=== PATIENT | male | born 1970 | race Caucasian/White ===

== ENCOUNTER 2024-11-11 00:56 | Emergency (ER) | payer OTHER, SELFPAY ==
--- OUTSIDE RECORDS SUMMARY | 2024-11-11 00:58 | XMS_ITS | Patient Health Summary ---
Author Organization [facility] Address [address] [place] [address] Care Team Providers Care Tavern Car Attendant Name Role Phone Kyle Manuel MD Primary Care Provider [phone] Note from [facility],non-owned Affiliates and Associated Physician Practices is amultiple site organization consisting of ambulatory clinics and hospital sitesin [place], [place], [place] and [place]. This disclosure is being madepursuant to the Care Everywhere program and may not contain all information available regarding this patient. Last updated 18.[facility] Allergies No known active allergies Immunizations * INFLUENZA VACCINE, QUADR. (FLUZONE; FLULAVAL; FLUARIX; AFLURIA QUADRIVALENT; 6MO+), 0.5 ML (IIV4)(Given 06/27/2017) Social History Tobacco Use Types Packs/Day Years Used Date Smoking Tobacco: Never Assessed Sex and Gender Information Value Date Recorded Sex Assigned at Not on file Gender Identity Not on file Sexual Orientation Not on file Care Teams Tavern Car Attendant Relationship Specialty Start Date End Date Kyle Manuel MD [address] [place] [id number] PCP - General Family Medicine 06/27/17
--- OUTSIDE RECORDS SUMMARY | 2024-11-11 00:58 | XMS_ITS | Referral Summary ---
Author Organization [facility] Address [address] [place] [address] Care Team Providers Care Grocery Supervisor Name Role Phone Kyle Manuel MD Primary Care Provider [phone] Source Comments [facility],non-owned Affiliates and Associated Physician Practices is amultiple site organization consisting of ambulatory clinics and hospital sitesin [place], [place], [place] and [place]. This disclosure is being madepursuant to the Care Everywhere program and may not contain all information available regarding this patient. Last updated 18.[facility] Allergies No known active allergies Immunizations Name Administration Dates Next Due INFLUENZA VACCINE, QUADR. (F LUZONE; FLULAVAL; FLUARIX; AFLURIA QUADRIVALENT; 6MO+), 0.5 ML (IIV4) 06/27/2017 Social History Tobacco Use Types Packs/Day Years Used Date Smoking Tobacco: Never Assessed Sex and Gender Information Value Date Recorded Sex Assigned at Not on file Gender Identity Not on file Sexual Orientation Not on file Plan of Treatment Not on file Care Teams Grocery Supervisor Relationship Specialty Start Date End Date Kyle Manuel MD [address] [place] [address] PCP - General Family Medicine 06/27/17
--- OUTSIDE RECORDS SUMMARY | 2024-11-11 00:59 | XMS_ITS | Clinical Summary ---
Author Organization [facility] Address [address] [place] [address] Care Team Providers Care Developer Prover Mechanical Name Role Phone Kyle Manuel MD Primary Care Provider [phone] Source Comments [facility],non-owned Affiliates and Associated Physician Practices is amultiple site organization consisting of ambulatory clinics and hospital sitesin [place], [place], [place] and [place]. This disclosure is being madepursuant to the Care Everywhere program and may not contain all information available regarding this patient. Last updated 18.[facility] Allergies No known active allergies Immunizations Name [...] Orientation Not on file Plan of Treatment Health Maintenance Due Date Last Done Comments COLOGUARD (AGES 45-75) - COL ON CA SCREENING 1971 COLON MONITORING 1971 COLONOSCOPY - COLON CA SCREENING 1971 CT COLONOGRAPHY - COLON CA SCREENING 1971 Colorectal Cancer Screening 1971 FIT - COLON CA SCREENING 1971 FLEX SIG - COLON CA SCREENING 1971 LIPID TESTING 1971 HIV SCREENING 12/02/1986 HEPATITIS C SCREENING 11/28/1989 DTAP/TDAP/TD VACCINES (1 - Tdap) 12/02/1990 HEPATITIS B VACCINE (1 of 3 - 19+ 3-dose series) 12/02/1990 PNEUMOCOCCAL VACCINE 50+ (1 of 1 - PCV) 12/02/2021 ZOSTER VACCINE (1 of 2) 12/02/2021 COVID-19 VACCINE (1 - 2023-2 5 season) 2024 INFLUENZA VACCINE (#1) 2024 06/27/2017 DEPRESSION SCREENING 08/28/2024 HIB VACCINE Aged Out No longer eligi ble based on patient's age to complete this topic HPV VACCINE Aged Out No longer eligi ble based on patient's age to complete this topic MENINGOCOCCAL (Group B) VACC INE SHARED DECISION-MAKING Aged Out No longer eligibl e based on patient's age to complete this topic MENINGOCOCCAL GROUPS A/C/Y/W VACCINE Aged Out No longer eligible b ased on patient's age to complete this topic PNEUMOCOCCAL VACCINE Aged Out No long er eligible based on patient's age to complete this topic Care Teams Developer Prover Mechanical Relationship Specialty Start Date End Date Kyle Manuel MD [address] [place] [address] PCP - General Family Medicine 06/27/17
[2024-11-11 01:08] VITALS: BP 154/81; PULSE 108; RESP 20; TEMP 36.4; O2SAT 97
--- OUTSIDE RECORDS SUMMARY | 2024-11-11 02:07 | XMS_ITS | Patient Health Summary ---
Author Organization [facility] Address [address] [place] [address] Care Team Providers Care Shredded Filler Machine Wrapper Layer Name Role Phone Kyle Manuel MD Primary Care Provider [phone] Note from [facility],non-owned Affiliates and Associated Physician Practices is amultiple site organization consisting of ambulatory clinics and hospital sitesin [place], [place], [place] and [place]. This disclosure is being madepursuant to the Care Everywhere program and may not contain all information available regarding this patient. Last updated 18.[facility] Allergies No known active allergies Immunizations * INFLUENZA VACCINE, QUADR. (FLUZONE; FLULAVAL; FLUARIX; AFLURIA QUADRIVALENT; 6MO+), 0.5 ML (IIV4)(Given 06/27/2017) Social History Tobacco Use Types Packs/Day Years Used Date Smoking Tobacco: Never Assessed Sex and Gender Information Value Date Recorded Sex Assigned at Not on file Gender Identity Not on file Sexual Orientation Not on file Care Teams Shredded Filler Machine Wrapper Layer Relationship Specialty Start Date End Date Kyle Manuel MD [address] [place] [id number] PCP - General Family Medicine 06/27/17
--- OUTSIDE RECORDS SUMMARY | 2024-11-11 02:07 | XMS_ITS | Referral Summary ---
Author Organization [facility] Address [address] [place] [address] Care Team Providers Care Model Maker Fiberglass Name Role Phone Kyle Manuel MD Primary Care Provider [phone] Source Comments [facility],non-owned Affiliates and Associated Physician Practices is amultiple site organization consisting of ambulatory clinics and hospital sitesin [place], [place], [place] and [place]. This disclosure is being madepursuant to the Care Everywhere program and may not contain all information available regarding this patient. Last updated 18.[facility] Allergies No known active allergies Immunizations Name [...] of Treatment Not on file Care Teams Model Maker Fiberglass Relationship Specialty Start Date End Date Kyle Manuel MD [address] [place] [address] PCP - General Family Medicine 06/27/17
--- OUTSIDE RECORDS SUMMARY | 2024-11-11 02:07 | XMS_ITS | Clinical Summary ---
Author Organization [facility] Address [address] [place] [address] Care Team Providers Care Iuss Acoustic Analyst Name Role Phone Kyle Manuel MD Primary Care Provider [phone] Source Comments [facility],non-owned Affiliates and Associated Physician Practices is amultiple site organization consisting of ambulatory clinics and hospital sitesin [place], [place], [place] and [place]. This disclosure is being madepursuant to the Care Everywhere program and may not contain all information available regarding this patient. Last updated 18.[facility] Allergies No known active allergies Immunizations Name [...] age to complete this topic Care Teams Iuss Acoustic Analyst Relationship Specialty Start Date End Date Kyle Manuel MD [address] [place] [address] PCP - General Family Medicine 06/27/17
[2024-11-11 02:15] LABS: Influenza A QL RT-PCR Positive (Negative); Influenza B QL RT-PCR Negative (Negative); RSV RNA, RT-PCR Negative (Negative); SARS-CoV-2 RNA PCR Negative (Negative)
--- NOTE | 2024-11-11 02:21 | ED_ITS ---
HPI - URI/Sore Throat General Chief Complaint: Upper Respiratory Infection Stated Complaint: sick and cant seem to shake it Time Seen by Provider: 11/11/24 02:02 Source: patient and family ( who also presents patient) Mode of arrival: ambulatory Limitations: no limitations History of Present Illness HPI Narrative: Patient presents with report of a productive cough, myalgias, chills of 1 week's duration. He denies any sore throat. who also presents with him as a patient has had similar symptoms. He has been trialing Zicam and NyQuil. He feels like he has brain fog. He reports a possible fever although not measured. Underlying respiratory conditions/diagnoses include sleep apnea (but not on CPAP). Denies smoking currently (former) but does report chewing tobacco. Related Data Allergies Allergy/AdvReac Type Severity Reaction Status Date / Time No Known Allergies Allergy Verified 11/11/24 01:10 [facility] Past Medical History Medical History Inclusion cyst Diabetes mellitus with microalbuminuria Diabetes mellitus with hyperglycemia ROHAN (obstructive sleep apnea) not on CPAP Essential hypertension Hyperlipidemia Surgical History Surgical History S/P tendon repair Family History Family History Father , Onset Age: 33 Motorcycle crash Mother No problems noted. Sibling No problems noted. Social History Social History Smoking status: Former smoker Smokeless tobacco user: chewing tobacco Second hand tobacco smoke exposure: Yes Alcohol intake: never Substance use: never Substance use type: does not use Do You Feel Safe in your Home?: Yes Lack of Transportation: No Lack of Food: Never True Current Housing: I Have Housing Concerned About Future Housing: No Difficulty Paying Gas/Electric Bills: No Difficulty Paying for Meds: No Currently Unemployed: No Education: High School Diploma/GED Difficulty w/ Childcare or Family Care: No Living arrangements: with family Additional living arrangements comments: Occupation/Education: occupation 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 HEAD: Normocephalic, atraumatic. EYES: Non injected, non icteric ENT: Nares clear, no rhinorrhea or epistaxis. NECK: Supple. CHEST: Speaking in full sentences. No respiratory distress. HEART: Tachycardic rate and rhythm. . ABDOMEN: Soft, nondistended. EXTREMITIES: Normal range of motion. SKIN: Warm, dry, no rash. NEURO: No focal deficits. Alert and oriented x3. PSYCH: Normal mood and affect. Course Vital Signs Vital signs: Vital Signs Temperature 97.6 F 11/11/24 01:08 Pulse Rate 108 H 11/11/24 01:08 Respiratory Rate 20 11/11/24 01:08 Blood Pressure 154/81 H 11/11/24 01:08 Pulse Oximetry 97 11/11/24 01:08 Oxygen Delivery Room Air 11/11/24 01:08 Temperature 97.6 F 11/11/24 01:08 Pulse Rate 108 H 11/11/24 01:08 Respiratory Rate 20 11/11/24 01:08 Blood Pressure 154/81 H 11/11/24 01:08 Pulse Oximetry 97 11/11/24 02:32 Oxygen Delivery Room Air 11/11/24 02:32 MDM - URI/Sore Throat MDM Narrative Medical decision making narrative: Patient presents with productive cough, myalgias, chills and brain fog with possible/subjective fevers of 1 week's duration. has had similar symptoms and also presents as a patient. In the emergency department he is afebrile with vital signs that show mild tachycardia and hypertension. He tests positive for influenza A. Patient given combination of medications for symptomatic relief while in the emergency department. Discussed but through shared decision-making will defer providing prescription for Tamiflu specially given duration of symptoms greater than 72 hours. Patient discharged home in stable condition advised supportive care and conservative treatment with rest, maintain hydration, and combination of medications for symptom relief. Verifies understanding and is in agreement. Stable for discharge. Lab Data Labs: Lab Results 11/11/24 Range/Units 01:30 Influenza A (RT-PCR) Positive A (Negative) Influenza B (RT-PCR) Negative (Negative) RSV (RT-PCR) Negative (Negative) SARS-CoV-2 RNA (RT-PCR) Negative (Negative) Discharge Plan Discharge Clinical Impression: Influenza A Patient Disposition: Home, Self-Care Condition: Stable Instructions: Antibiotic Form, Influenza (DC) Additional Instructions: As we discussed, the main stays of treatment are rest and supportive care, maintaining hydration. You can use the prescribed medications for symptom relief. You can continue to use the other coyz-ooh-znwuzea medications you are using as well. Acetaminophen/Tylenol (maximum 4000 mg per day) is safe to take with NSAIDs (ibuprofen/Motrin) for pain relief. Follow-up with primary care physician. Return to the emergency department with any new or worsening symptoms. Patient Language: Bengali Prescriptions: New acetaminophen 500 mg capsule 1,000 mg PO Q6H PRN (Reason: pain) Qty: 20 0RF benzonatate 100 mg capsule 100 mg PO BID PRN (Reason: cough) Qty: 20 0RF ibuprofen 600 mg tablet 600 mg PO TID PRN (Reason: pain) Qty: 20 0RF No Action Synjardy XR 12.5-1,000 mg tablet, IR - ER, biphasic 24hr 2 tablet PO DAILY Qty: 180 1RF Trulicity 3 mg/0.5 mL pen injector 3 mg subcut WEEKLY Qty: 6 1RF (DME) FreeStyle Reinaldo 2 Sensor Kit See Rx Instructions .Route Qty: 6 3RF Rx Instructions: QID benazepril 20 mg tablet 20 mg PO DAILY Qty: 90 3RF atorvastatin [Lipitor] 20 mg tablet 20 mg PO DAILY Qty: 90 3RF Follow-up/Referrals: Kyle Manuel MD [Primary Care Provider] - Stand Alone Forms: Work/School Release IP Time of Disposition: 02:38
[2024-11-11 02:32] VITALS: O2SAT 97
[2024-11-11] MEDS: guaiFENesin/DEXTROMETHORPHAN 10 ML UDC PO (03:01)
[2024-11-11] MEDS: KETOROLAC 30 MG/ML VIAL (*BKC) 15 MG IM (03:02)
[2024-11-11] MEDS: ACETAMINOPHEN 500 MG TABLET 1000 MG PO (03:02)
[2024-11-11] MEDS: BENZONATATE 100 MG CAPSULE PO (03:02)
== END 2024-11-11 03:16 | disposition home or self-care (01) ==
PROVIDERS: Emergency Provider Student in an Organized Health Care Education/Training Program; PCP Family Medicine
DX: J10.1 Influenza due to other identified influenza virus with other respiratory manifestations (principal); Z20.822 Contact with and (suspected) exposure to COVID-19; E11.9 Type 2 diabetes mellitus without complications; G47.33 Obstructive sleep apnea (adult) (pediatric); I10 Essential (primary) hypertension; E78.5 Hyperlipidemia, unspecified; Z87.891 Personal history of nicotine dependence
CPT/HCPCS: 87637; 96372; 99283; A9270; J1885

== ENCOUNTER 2024-11-15 03:21 | Inpatient (IN) | payer OTHER, SELFPAY ==
[2024-11-15] VITALS (17 sets, daily range): BP systolic 114–161; BP diastolic 57–122; PULSE 72–119; RESP 17–38; TEMP 36.6–37.1; O2SAT 93–100; BMI 38.9
--- NOTE | ~2024-11-15 | CT_ITS ---
Clinical Indication: Chest pain, shortness of breath CT Scan of the Chest with Contrast: Technique: Contiguous sections were acquired throughout the chest after intravenous administration of 200 cc of Omnipaque 350. Dose reduction technique was used on this scan by utilizing automated expos ure control and iterative reconstruction technique. The dose-length product (DLP) was 2286.71 mGy-cm. Findings: There is no evidence of any significant mediastinal, hilar or axillary lymphadenopathy. No definite l arge central pulmonary embolus. Evaluation for pulmonary emboli suboptimal due to timing of the contr ast bolus.. There is no evidence of aortic dissection or aneurysm. No pericardial effusion. And minimal left pleural effusion present. No right pleural effusion.. There is extensive left lower lobe consolidation, compatible with extensive pneumonia. There is mild involvement of the lingula. There is segmental atelectasis in the posterior left upper lobe. Right felix ng clear. Images through the upper abdomen reveal 3 mm nonobstructing left renal stone. Impression: Extremely limited evaluation for pulmonary embolus due to timing of the contrast bolus. No definite l arge central pulmonary embolus. Extensive left lower lobe pneumonia with partial involvement of the lingula. Segmental atelectasis in the posterior left upper lobe. Minimal left pleural effusion. Reviewed, dictated and finalized at location M. Impression: Extremely limited evaluation for pulmonary embolus due to timing of the contras t bolus. No definite large central pulmonary embolus. Extensive left lower lobe pneumonia with partial involvement of the lingula. Segmental atelectasis in the posterior left upper lobe. Minimal left pleural effusion.
--- OUTSIDE RECORDS SUMMARY | 2024-11-15 03:23 | XMS_ITS | Clinical Summary ---
Author Organization [facility] Address [address] [place] [address] Care Team Providers Care Dragsaw Operator Name Role Phone Kyle Manuel MD Primary Care Provider [phone] Source Comments [facility],non-owned Affiliates and Associated Physician Practices is amultiple site organization consisting of ambulatory clinics and hospital sitesin [place], [place], [place] and [place]. This disclosure is being madepursuant to the Care Everywhere program and may not contain all information available regarding this patient. Last updated 18.[facility] Allergies No known active allergies Immunizations Name [...] age to complete this topic Care Teams Dragsaw Operator Relationship Specialty Start Date End Date Kyle Manuel MD [address] [place] [address] PCP - General Family Medicine 06/27/17
[2024-11-15] MEDS: MORPHINE SULFATE (*CRX) 4 MG/ML INJ IV PUSH (03:37)
[2024-11-15] MEDS: SODIUM CHLORIDE 0.9% IV 1,000 ML 999 ML IV CONT (03:38)
[2024-11-15] MEDS: ASPIRIN 81 MG CHEWABLE TABLET 324 MG PO (03:39)
[2024-11-15 03:55] LABS: Hematocrit 37.7 % (42.0-52.0); Hemoglobin 12.3 g/dL (14.0-18.0); Mean Corpuscular HGB Conc 32.6 g/dl (32-36); Mean Corpuscular Hemoglobin 28.5 pg (26-34); Mean Corpuscular Volume 87.3 fl (80-100); Mean Platelet Volume 9.1 fl (7.4-10.4); Platelet Count Result 279 k/mm3 (150-375); Red Blood Count 4.32 M/mm3 (4.6-6.20); White Blood Count 10.6 K/mm3 (4.5-10.0)
[2024-11-15 04:04] LABS: Alanine Aminotransferase 21 U/L (6-50); Albumin Level 4.1 g/dL (3.5-5.1); Alkaline Phosphatase 99 U/L (38-126); Anion Gap 21 mmol/L (4-12); Aspartate Amino Transferase 25 U/L (17-59); Bilirubin,Total 0.9 mg/dL (0.2-1.3); Blood Urea Nitrogen 22 mg/dL (9-20); Calcium 9.4 mg/dL (8.4-10.2); Carbon Dioxide 12 mmol/L (22-30); Chloride 98 mmol/L (98-107); Estimated CRCL calculation 82 ml/min; Estimated Glomerular Filt Rate > 60; Glucose 149 mg/dL (65-110); Potassium 4.5 mmol/L (3.4-5.0); Sodium 131 mmol/L (137-145)
[2024-11-15 04:06] LABS: Alveolar/Arterial O2 Gradient 49.6 mmHg; Base Excess ABG -10.9 mEq/l (+/-2.0); Fractional Inspired Oxygen 21 %; HCO3 ABG 13.5 mEq/l (22.0-26.0); Oxygen Content ABG 16.5 %vol (16.0-22.0); Oxygen Saturation ABG 92.7 % (95.0-100.0); Oxyhemoglobin 91.4 % THb (90.0-100.0); PCO2 ABG 26.7 mmHg (35.0-45.0); PO2 ABG 68.2 mmHg (80.0-100.0); PO2 FiO2 Ratio Arterial Blood 3.25 %; Total Hemoglobin 12.8 g/dL (12.0-18.0); pH ABG 7.322 (7.350-7.450)
[2024-11-15 04:07] LABS: INR 1.2; Prothrombin Time 15.2 Seconds (11.1-14.7)
[2024-11-15 04:08] LABS: Partial Thromboplastin Time 33.8 Seconds (22.3-36.8)
[2024-11-15 04:09] LABS: Modified Allen's Test Pass; Site Drawn RIGHT BRACHIAL
[2024-11-15 04:14] LABS: NT Pro B Type Natriuretic Pept 110 pg/mL (19.9-100)
[2024-11-15 04:16] LABS: Lipase 207 U/L (23-300); Magnesium 2.2 mg/dL (1.6-2.3)
[2024-11-15 04:29] LABS: Troponin I < 0.012 ng/mL (0.000-0.034)
[2024-11-15 04:30] LABS: Influenza A QL RT-PCR Negative (Negative); Influenza B QL RT-PCR Negative (Negative); RSV RNA, RT-PCR Negative (Negative); SARS-CoV-2 RNA PCR Negative (Negative)
[2024-11-15 04:52] LABS: Anisocytosis 1+; Band Neutrophils Percent 5 % (0-6); Burr Cells 1+; Lymphocytes Absolute Manual 0.63 K/mm3 (1.1-4.5); Monocytes Absolute Manual 0.21 K/mm3 (0.1-0.90); Monocytes Percent Manual 2 % (3-9); Neutrophils Absolute Manual 9.75 K/mm3 (1.3-6.7); Neutrophils Percent Manual 87 % (46-73); Platelet Estimate Adequate (Adequate); Schistocytes None Seen; Smudge Cells PRESENT; Total Cells Counted 100
--- NOTE | 2024-11-15 05:45 | ED_ITS ---
HPI - General Adult General Chief complaint: Shortness of Breath/Dyspnea Stated complaint: Unknown Time Seen by Provider: 11/15/24 03:25 History of Present Illness HPI narrative: Patient 53-year-old gentleman presents emergency department with chief complaint of shortness of breath chest pain and cough patient reports he tested positive for influenza a on Monday and reports since then he has been not feeling well the patient states the pain is worse with inspiration and reports that is not improved by anything. Related Data Allergies Allergy/AdvReac Type Severity Reaction Status Date / Time No Known Allergies Allergy Verified 11/11/24 01:10 Review of Systems 2 Review of Systems: A 10 system review of systems was completed on the patient and is negative except for what is stated in the HPI. Nursing and ancillary documentation was reviewed. [facility]LY [facility] Past Medical History Medical History Inclusion cyst Diabetes mellitus with microalbuminuria Diabetes mellitus with hyperglycemia ROHAN (obstructive sleep apnea) not on CPAP Essential hypertension Hyperlipidemia Surgical History Surgical History S/P tendon repair Family History Family History Father , Onset Age: 33 Motorcycle crash Mother No problems noted. Sibling No problems noted. Social History Social History Smoking status: Former smoker Smokeless tobacco user: chewing tobacco Second hand tobacco smoke exposure: Yes Alcohol intake: never Substance use: never Substance use type: does not use Do You Feel Safe in your Home?: Yes Lack of Transportation: No Lack of Food: Never True Current Housing: I Have Housing Concerned About Future Housing: No Difficulty Paying Gas/Electric Bills: No Difficulty Paying for Meds: No Currently Unemployed: No Education: High School Diploma/GED Difficulty w/ Childcare or Family Care: No Living arrangements: with family Additional living arrangements comments: Occupation/Education: occupation Additional occupation/education comments: driver messenger Gender identity (if verbalized by the patient): Male Exam 2 Narrative: GENERAL: Well-appearing, well-nourished, and in no acute distress. HEAD: Normocephalic, atraumatic. EYES: PERRLA and EOMI. ENT: Nares clear, no rhinorrhea or epistaxis. Mucous membranes moist. NECK: Supple. CHEST: Clear to auscultation. No respiratory distress. HEART: Tachycardic rate and regular rhythm. No murmur heard. Normal peripheral pulses. ABDOMEN: Soft, nontender, nondistended, normal active bowel sounds. EXTREMITIES: Normal range of motion. No edema. SKIN: Warm, dry, no rash. NEURO: No focal deficits. Alert and oriented x3. PSYCH: Normal mood and affect. Course Vital Signs Vital signs: Vital Signs Temperature 36.8 C 11/15/24 03:28 Pulse Rate 119 H 11/15/24 03:28 Respiratory Rate 38 H 11/15/24 03:28 Blood Pressure 158/122 H 11/15/24 03:28 Pulse Oximetry 93 11/15/24 03:28 Oxygen Delivery Room Air 11/15/24 03:28 Temperature 36.8 C 11/15/24 03:28 Pulse Rate 119 H 11/15/24 03:28 Respiratory Rate 38 H 11/15/24 03:28 Blood Pressure 158/122 H 11/15/24 03:28 Pulse Oximetry 93 11/15/24 03:28 Oxygen Delivery Room Air 11/15/24 03:30 Medical Decision Making MDM Narrative Medical decision making narrative: Differential diagnosis includes pneumonia, pulmonary embolism, pleural effusion, CHF, ACS Vital Signs Vital Signs: Vital Signs Temperature 36.8 C 11/15/24 03:28 Pulse Rate 119 H 11/15/24 03:28 Respiratory Rate 38 H 11/15/24 03:28 Blood Pressure 158/122 H 11/15/24 03:28 Pulse Oximetry 93 11/15/24 03:28 Oxygen Delivery Room Air 11/15/24 03:28 Temperature 36.8 C 11/15/24 03:28 Pulse Rate 119 H 11/15/24 03:28 Respiratory Rate 38 H 11/15/24 03:28 Blood Pressure 158/122 H 11/15/24 03:28 Pulse Oximetry 93 11/15/24 03:28 Oxygen Delivery Room Air 11/15/24 03:30 Lab Data 11/15/24 03:50 11/15/24 03:50 Labs: Lab Results 11/15/24 Range/Units 03:50 WBC 10.6 H (4.5-10.0) K/mm3 RBC 4.32 L (4.6-6.20) M/mm3 Hgb 12.3 L (14.0-18.0) g/dL Hct 37.7 L (42.0-52.0) % MCV 87.3 (80-100) fl MCH 28.5 (26-34) pg MCHC 32.6 (32-36) g/dl RDW 12.0 (11.5-14.5) % Plt Count 279 (150-375) k/mm3 MPV 9.1 (7.4-10.4) fl Immature Gran % (Auto) Not Reportable Neut % (Auto) Not Reportable Lymph % (Auto) Not Reportable Greenlee % (Auto) Not Reportable Eos % (Auto) Not Reportable Baso % (Auto) Not Reportable Lymph # (Auto) Not Reportable Greenlee # (Auto) Not Reportable Eos # (Auto) Not Reportable Baso # (Auto) Not Reportable Abs Immat Gran (auto) Not Reportable Absolute Neuts (auto) Not Reportable Absolute Nucleated RBC Not Reportable Total Counted 100 Neutrophils % (Manual) 87 H (46-73) % Band Neutrophils % 5 (0-6) % Lymphocytes % (Manual) 6.0 L (18-44) % Monocytes % (Manual) 2 L (3-9) % Nucleated RBC % Not Reportable Abs Neuts (Manual) 9.75 H (1.3-6.7) K/mm3 Abs Lymphs (Manual) 0.63 L (1.1-4.5) K/mm3 Abs Monocytes (Manual) 0.21 (0.1-0.90) K/mm3 Smudge Cells Present Platelet Estimate Adequate (Adequate) Anisocytosis 1+ Partha Cells 1+ Schistocytes None seen PT 15.2 H (11.1-14.7) Seconds INR 1.2 APTT 33.8 (22.3-36.8) Seconds Sodium 131 L (137-145) mmol/L Potassium 4.5 (3.4-5.0) mmol/L Chloride 98 (98-107) mmol/L Carbon Dioxide 12 L (22-30) mmol/L Anion Gap 21 H (4-12) mmol/L BUN 22 H (9-20) mg/dL Creatinine 1.02 (0.7-1.3) mg/dL Estim Creat Clear Calc 82 ml/min Estimated GFR > 60 (59 - ) Glucose 149 H (65-110) mg/dL Lactic Acid 1.0 (0.7-2.0) mmol/L Calcium 9.4 (8.4-10.2) mg/dL Magnesium 2.2 (1.6-2.3) mg/dL Total Bilirubin 0.9 (0.2-1.3) mg/dL AST 25 (17-59) U/L ALT 21 (6-50) U/L Alkaline Phosphatase 99 (38-126) U/L Troponin I < 0.012 (0.000-0.034) ng/mL NT-Pro-B Natriuret Pep 110 H (19.9-100) pg/mL Total Protein 8.0 (6.3-8.2) g/dL Albumin 4.1 (3.5-5.1) g/dL Lipase 207 (23-300) U/L Influenza A (RT-PCR) Negative (Negative) Influenza B (RT-PCR) Negative (Negative) RSV (RT-PCR) Negative (Negative) SARS-CoV-2 RNA (RT-PCR) Negative (Negative) ABG Data ABG results: 11/15/24 04:00 Puncture Site Right brachial ABG pH 7.322 L ABG pCO2 26.7 L ABG pO2 68.2 L ABG PO2/FiO2 Ratio 3.25 ABG HCO3 13.5 L ABG O2 Saturation 92.7 L ABG O2 Content 16.5 ABG Base Excess -10.9 A-a Gradient 49.6 Oxyhemoglobin 91.4 Total Hemoglobin 12.8 O2 Delivery Device Not Reportable O2 Liters/Min 0.0 FiO2 21 Discharge Plan Discharge Clinical Impression: Pneumonia, Acute hypoxic respiratory failure Patient Disposition: Still a Patient Condition: Stable Patient Language: Vietnamese Prescriptions: No Action Synjardy XR 12.5-1,000 mg tablet, IR - ER, biphasic 24hr 2 tablet PO DAILY Qty: 180 1RF Trulicity 3 mg/0.5 mL pen injector 3 mg subcut WEEKLY Qty: 6 1RF acetaminophen 500 mg capsule 1,000 mg PO Q6H PRN (Reason: pain) Qty: 20 0RF benzonatate 100 mg capsule 100 mg PO BID PRN (Reason: cough) Qty: 20 0RF ibuprofen 600 mg tablet 600 mg PO TID PRN (Reason: pain) Qty: 20 0RF (DME) FreeStyle Reinaldo 2 Sensor Kit See Rx Instructions .Route Qty: 6 3RF Rx Instructions: QID benazepril 20 mg tablet 20 mg PO DAILY Qty: 90 3RF atorvastatin [Lipitor] 20 mg tablet 20 mg PO DAILY Qty: 90 3RF Follow-up/Referrals: Kyle Manuel MD [Primary Care Provider] - Time of Disposition: 06:40
[2024-11-15 06:44] LABS: Lactic Acid Reflex 1.6 mmol/L (0.7-2.0)
[2024-11-15 06:47] LABS: Add Urine Microscopic? YES; Appearance Urine Clear (Clear); Bilirubin Urine Negative (Negative); Blood Urine Negative (Negative); Color Urine Yellow (Yellow); Glucose Urine UA 3+ mg/dL (Negative); Ketones Urine 4+ mg/dL (Negative); Leukocyte Esterase Ur Negative LEU/UL (Negative); Nitrate Urine Negative (Negative); Protein Urine 1+ mg/dL (Negative); Specific Grav Ur > 1.045 (1.001-1.035); pH Urine 5.5 (5.0-9.0)
[2024-11-15] MEDS: VANCOMYCIN 1,250 MG/NS 250 ML 1,250 MG/250 ML BAG 166.67 MG IVPB ×2 (06:50→10:10)
[2024-11-15 06:56] LABS: Troponin I < 0.012 ng/mL (0.000-0.034)
[2024-11-15 07:12] LABS: Squamous Epithelial Cell Urine Rare /hpf (Few)
[2024-11-15 07:13] LABS: Bacteria Urine Rare /hpf
[2024-11-15 07:48] LABS: MRSA (PCR) NOT DETECTED (NOT DETECTE)
[2024-11-15 07:51] LABS: Alveolar/Arterial O2 Gradient 46.1 mmHg; Base Excess ABG -11.4 mEq/l (+/-2.0); Carboxyhemoglobin 0.3 % THb (0-2.0); Device NASAL CANNULA; Fractional Inspired Oxygen 24 %; Methemoglobin ABG 0.4 %THb (0-1.5); Modified Allen's Test Pass; Oxygen Content ABG 16.7 %vol (16.0-22.0); Oxygen Saturation ABG 96.8 % (95.0-100.0); PCO2 ABG 25.8 mmHg (35.0-45.0); PO2 ABG 94.3 mmHg (80.0-100.0); PO2 FiO2 Ratio Arterial Blood 3.93 %; Reduced Hemoglobin 3.3 %THb (0-5.0); Site Drawn RIGHT RADIAL; Total Hemoglobin 12.3 g/dL (12.0-18.0)
--- NOTE | 2024-11-15 08:36 | P.HP_ITS ---
H&P: HPI History of Present Illness Date/Time: 11/15/24 08:36 Chief Complaint: shortness of breath Narrative: This is a 53-year-old male who presents to the ED today with worsening chest pain and shortness of breath along with cough. He was recently in the ER with similar symptoms on 11/11/2024 and was diagnosed with influenza A. Patient also continues to not feel well and will has pain with inspiration. He has been taking ibuprofen as needed for pain. In the ED was noted to be tachypneic and tachycardic. Other vitals were unremarkable. Oxygen saturation was adequate on room air. Laboratory workup r evealed WBC of 10.6 hemoglobin 12.3 hyponatremic at 131. acidotic with bicarb of 12 creatinine 1.02 lactate was 1. Troponin was negative repeat influenza RSV COVID swab was negative. Lipase was normal at 207. ABG 7.32///13. Patient has been placed on oxygen supplementation via nasal cannula. CTA was performed which was negative for large central pulmonary embolism. Showed extensive left lower lobe pneumonia with partial involvement of the lingula minimal left pleural effusion segmental atelectasis in the posterior left upper lobe. Patient has been started on broad-spectrum antibiotics. Patient admitted for further treatment. Review of Systems Review of Systems: - CONSTITUTIONAL: Denies weight loss, fe chauncey and reports body aches and chills. - HEENT: Denies changes in vision and he aring - RESPIRATORY: Reports SOB and cough. - CV: Denies palpitations and reports le ft-sided CP. - GI: Denies abdominal pain, nausea, vom iting and diarrhea. - : Denies dysuria and urinary frequen cy. - MSK: Reports myalgia and denies joint pain. - SKIN: Denies rash and pruritus. - NEUROLOGICAL: Denies headache and sync ope. - PSYCHIATRIC: Denies recent changes in mood. Denies anxiety and depression. [facility] Past Medical History Medical History Inclusion cyst Diabetes mellitus with microalbuminuria Diabetes mellitus with hyperglycemia ROHAN (obstructive sleep apnea) not on CPAP Essential hypertension Hyperlipidemia Surgical History Surgical History S/P tendon repair Family History Family History Father , Onset Age: 33 Motorcycle crash Mother No problems noted. Sibling No problems noted. Social History Social History Smoking status: Former smoker Smokeless tobacco user: chewing tobacco Second hand tobacco smoke exposure: Yes Alcohol intake: never Substance use: never Substance use type: does not use Do You Feel Safe in your Home?: Yes Lack of Transportation: No Lack of Food: Never True Current Housing: I Have Housing Concerned About Future Housing: No Difficulty Paying Gas/Electric Bills: No Difficulty Paying for Meds: No Currently Unemployed: No Education: High School Diploma/GED Difficulty w/ Childcare or Family Care: No Living arrangements: with family Additional living arrangements comments: Occupation/Education: occupation 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 Gender identity (if verbalized by the patient): Male Meds Home Medications and Allergies Home Medications ?Medication ?Instructions ?Recorded ?Confirmed ?Type flash glucose sensor ([employer] #[id number] ea 11/27/23 07/29/24 Rx Reinaldo 2 Sensor kit) benazepril 20 mg tablet 20 mg PO DAILY #90 tabs 01/31/24 11/15/24 Rx atorvastatin 20 mg tablet (Lipitor) 20 mg PO DAILY #90 tabs 02/27/24 11/15/24 Rx dulaglutide 3 mg/0.5 mL 3 mg (0.5 mL) subcut WEEKLY #6 mL 07/29/24 11/15/24 Rx subcutaneous pen injector (Trulicity) acetaminophen 500 mg capsule 1,000 mg (2 x 500 mg) PO Q6H PRN 11/11/24 11/15/24 Rx pain #20 caps benzonatate 100 mg capsule 100 mg PO BID PRN cough #20 caps 11/11/24 11/15/24 Rx ibuprofen 600 mg tablet 600 mg PO TID PRN pain #20 tabs 11/11/24 11/15/24 Rx Allergies Allergy/AdvReac Type Severity Reaction Status Date / Time No Known Allergies Allergy Verified 11/15/24 09:10 Vital Signs Vital Signs - 24 hr 11/15/24 03:28 11/15/24 03:30 11/15/24 04:30 Temperature 98.3 F Pulse Rate 119 H Respiratory Rate 38 H Blood Pressure 158/122 H Pulse Oximetry 93 98 Oxygen Delivery Room Air Room Air Nasal Cannula Oxygen Flow Rate 2 11/15/24 06:59 Temperature Pulse Rate 76 Respiratory Rate Blood Pressure 131/65 Pulse Oximetry 98 Oxygen Delivery Oxygen Flow Rate Exam Narrative: GENERAL: Well-appearing, well-nourished, and in no acute distress. HEAD: Normocephalic, atraumatic. EYES: PERRLA and EOMI. ENT: Nares clear, no rhinorrhea or epistaxis. Mucous membranes moist. NECK: Supple. CHEST: Left-sided crackles. No respiratory distress. But tachypneic HEART: Tachycardic rate and regular rhythm. No murmur heard. Normal peripheral pulses. ABDOMEN: Soft, nontender, nondistended, normal active bowel sounds. EXTREMITIES: Normal range of motion. No edema. SKIN: Warm, dry, no rash. NEURO: No focal deficits. Alert and oriented x3. PSYCH: Normal mood and affect. H&P: Results Labs Labs: Short CBC 11/15/24 Range/Units 03:50 WBC 10.6 H (4.5-10.0) K/mm3 Hgb 12.3 L (14.0-18.0) g/dL Hct 37.7 L (42.0-52.0) % Plt Count 279 (150-375) k/mm3 BMP 11/15/24 03:50 Sodium 131 L Potassium 4.5 Chloride 98 Carbon Dioxide 12 L BUN 22 H Creatinine 1.02 Glucose 149 H Calcium 9.4 Cardiac Enzymes 11/15/24 11/15/24 Range/Units 03:50 06:23 Troponin I < 0.012 < 0.012 (0.000-0.034) ng/mL Liver Function 11/15/24 Range/Units 03:50 Total Bilirubin 0.9 (0.2-1.3) mg/dL AST 25 (17-59) U/L ALT 21 (6-50) U/L Alkaline Phosphatase 99 (38-126) U/L Albumin 4.1 (3.5-5.1) g/dL Urine 11/15/24 Range/Units 06:23 Urine Color Yellow (Yellow) Urine Appearance Clear (Clear) Urine pH 5.5 (5.0-9.0) Ur Specific [place] > 1.045 H (1.001-1.035) Urine Protein 1+ H (Negative) mg/dL Urine Glucose (UA) 3+ H (Negative) mg/dL Assessment and Plan Assessment and plan (1) Essential hypertension: Code(s): I10 - Essential (primary) hypertension Status: Acute (2) Hyperlipidemia: Qualifiers: Hyperlipidemia type: mixed hyperlipidemia Qualified Code(s): E78.2 - Mixed hyperlipidemia Code(s): E78.5 - Hyperlipidemia, unspecified Status: Acute (3) Diabetes type 2, controlled: Qualifiers: Diabetes mellitus correction insulin use: without correction use Diabetes mellitus complication status: without complication Qualified Code(s): E11.9 - Type 2 diabetes mellitus without complications Code(s): E11.9 - Type 2 diabetes mellitus without complications Status: Acute (4) Pneumonia: Code(s): J18.9 - Pneumonia, unspecified organism Status: Acute (5) Acute hypoxic respiratory failure: Code(s): J96.01 - Acute respiratory failure with hypoxia Status: Acute (6) ROHAN (obstructive sleep apnea): Code(s): G47.33 - Obstructive sleep apnea (adult) (pediatric) Status: Acute (7) Sepsis: Code(s): A41.9 - Sepsis, unspecified organism Status: Acute Plan This is a 53-year-old male who presents to the ED today with worsening chest pain and shortness of breath along with cough. He was recently in the ER with similar symptoms on 11/11/2024 and was diagnosed with influenza A. Patient also continues to not feel well and will has pain with inspiration. He has been taking ibuprofen as needed for pain. In the ED was noted to be tachypneic and tachycardic. Other vitals were unremarkable. Oxygen saturation was adequate on room air. Laboratory workup revealed WBC of 10.6 hemoglobin 12.3 hyponatremic at 131. acidotic with bicarb of 12 creatinine 1.02 lactate was 1. Troponin was negative repeat influenza RSV COVID swab was negative. Lipase was normal at 207. ABG 7.32/26/68/13. Patient has been placed on oxygen supplementation via nasal cannula. CTA was performed which was negative for large central pulmonary embolism. Showed extensive left lower lobe pneumonia with partial involvement of the lingula minimal left pleural effusion segmental atelectasis in the posterior left upper lobe. Patient has been started on broad-spectrum antibiotics. Patient admitted for further treatment. Sepsis Left lower lobe pneumonia MRSA nares came back negative however will continue with vancomycin IV. Continue on cefepime and azithromycin. Recent influenza A Acute hypoxic respiratory failure needing oxygen supplementation Metabolic acidosis Mild hyponatremia Type 2 diabetes Hypertension Hyperlipidemia DVTprophylaxis Lovenox Code status full code Hospitalist MIPS Advance Care Plan I have confirmed that the patient's Advanced Care Plan is present, code status is documented, or surrogate decision maker is listed in patient medical record.: Yes Medication Reconciliation I have utilized all available resources to obtain, update and review the patients current medications (includes all prescriptions, OTC, herbals, cannabis, and nutritional supplements).: Yes
--- NOTE | 2024-11-15 10:30 | PC.NURSE ---
This RN called pt Sweetie with pt permission and left message informing her of pt admission
--- NOTE | 2024-11-15 10:59 | ADMGEN ---
This patient, Nathan Espana Jr., was admitted to IMU Room 213-01. Patient/family oriented to hospital policies and general routines including ID bracelet, bed and alarms, visiting hours, pain management, procedures, bathroom and other care routines, personal items, smoking policy, room service/diet, and visiting hours. Information on how to activate the Rapid Response Team has been discussed. Patient/Family are encouraged to report perceived risks to care and to ask questions if they do not understand what they are told or what they should do.
[2024-11-15 11:20] LABS: Anion Gap 19 mmol/L (4-12); Blood Urea Nitrogen 19 mg/dL (9-20); Calcium 9.2 mg/dL (8.4-10.2); Carbon Dioxide 15 mmol/L (22-30); Chloride 100 mmol/L (98-107); Estimated CRCL calculation 81 ml/min; Estimated Glomerular Filt Rate > 60; Glucose 129 mg/dL (65-110); Potassium 4.7 mmol/L (3.4-5.0); Sodium 134 mmol/L (137-145)
[2024-11-15 12:13] LABS: Procalcitonin 3.1 ng/mL
[2024-11-15] MEDS: lisinopriL 20 MG TABLET PO (13:10)
[2024-11-15] MEDS: SODIUM CHLORIDE 0.9% IV 1,000 ML 100 ML IV CONT (13:10)
[2024-11-15] MEDS: guaiFENesin 12 HR 600 MG TABCR PO ×2 (13:10→20:30)
[2024-11-15 13:17] LABS: Glucose Point of Care 132 mg/dl (65-105)
[2024-11-15] MEDS: CEFEPIME 2 GM/NS 50 ML 2 GM/50 ML BAG IVPB ×2 (14:57→21:36)
[2024-11-15] MEDS: AZITHROMYCIN 500 MG/NS 250 ML 500 MG/250 ML BAG 250 MG IVPB (14:57)
[2024-11-15 17:53] LABS: Glucose Point of Care 170 mg/dl (65-105)
[2024-11-15] MEDS: VANCOMYCIN 1,500 MG/NS 500 ML 1,500 MG/500 ML BAG 250 MG IVPB (19:40)
[2024-11-15] MEDS: IPRATROPIUM 0.5 MG/ALBUTEROL SULFATE 2.5 MG AMPUL.NEB 3 ML INHALATION (19:47)
[2024-11-15 20:34] LABS: Glucose Point of Care 169 mg/dl (65-105)
[2024-11-16] VITALS (24 sets, daily range): BP systolic 143–156; BP diastolic 60–89; PULSE 81–117; RESP 18–22; TEMP 36.6–37.3; O2SAT 93–98
[2024-11-16] MEDS: IPRATROPIUM 0.5 MG/ALBUTEROL SULFATE 2.5 MG AMPUL.NEB 3 ML INHALATION ×4 (02:03→19:46)
[2024-11-16 05:03] LABS: Basophils Absolute Auto 0.1 K/mm3 (0.0-0.1); Basophils Percent Auto 0.6 % (0.2-1.2); Eosinophils Absolute Auto 0.1 K/mm3 (0-0.3); Eosinophils Percent Auto 0.9 % (0-4.4); Hematocrit 35.1 % (42.0-52.0); Hemoglobin 11.1 g/dL (14.0-18.0); Immature Granulocyte Absolute 0.46 K/mm3 (0.00-0.031); Immature Granulocyte Percent A 5.9 % (0-0.5); Lymphocytes Absolute Auto 0.58 K/mm3 (0.9-3.2); Lymphocytes Percent Auto 7.4 % (18.3-44.2); Mean Corpuscular HGB Conc 31.6 g/dl (32-36); Mean Corpuscular Hemoglobin 28.2 pg (26-34); Mean Corpuscular Volume 89.3 fl (80-100); Mean Platelet Volume 9.2 fl (7.4-10.4); Monocytes Absolute Auto 0.8 K/mm3 (0.1-0.6); Monocytes Percent Auto 10.8 % (2.6-8.5); Neutrophils Absolute Auto 5.8 K/mm3 (1.3-6.7); Neutrophils Percent Auto 74.4 % (45.5-73.1); Platelet Count Result 280 k/mm3 (150-375); Red Blood Count 3.93 M/mm3 (4.6-6.20); Red Cell Distribution Width 12.2 % (11.5-14.5); White Blood Count 7.8 K/mm3 (4.5-10.0)
[2024-11-16 05:27] LABS: Alanine Aminotransferase 19 U/L (6-50); Albumin Level 3.2 g/dL (3.5-5.1); Alkaline Phosphatase 77 U/L (38-126); Anion Gap 15 mmol/L (4-12); Aspartate Amino Transferase 25 U/L (17-59); Bilirubin,Total 0.7 mg/dL (0.2-1.3); Blood Urea Nitrogen 18 mg/dL (9-20); Calcium 8.3 mg/dL (8.4-10.2); Carbon Dioxide 17 mmol/L (22-30); Chloride 103 mmol/L (98-107); Estimated CRCL calculation 126 ml/min; Estimated Glomerular Filt Rate > 60; Glucose 147 mg/dL (65-110); Magnesium 2.4 mg/dL (1.6-2.3); Potassium 4.4 mmol/L (3.4-5.0); Sodium 135 mmol/L (137-145)
[2024-11-16] MEDS: SODIUM CHLORIDE 0.9% IV 1,000 ML 100 ML IV CONT (06:43)
[2024-11-16] MEDS: CEFEPIME 2 GM/NS 50 ML 2 GM/50 ML BAG IVPB ×3 (06:45→22:50)
[2024-11-16 07:33] LABS: Glucose Point of Care 133 mg/dl (65-105)
[2024-11-16] MEDS: lisinopriL 20 MG TABLET PO (08:34)
[2024-11-16] MEDS: ATORVASTATIN 20 MG TABLET PO (08:34)
[2024-11-16] MEDS: guaiFENesin 12 HR 600 MG TABCR PO ×2 (08:34→20:01)
[2024-11-16] MEDS: VANCOMYCIN 1,500 MG/NS 500 ML 1,500 MG/500 ML BAG 250 MG IVPB (08:35)
[2024-11-16 11:22] LABS: Glucose Point of Care 207 mg/dl (65-105)
[2024-11-16] MEDS: INSULIN ASPART (*BKC) 100 UNITS/ML SUB-Q ×2 (11:53→20:00)
--- NOTE | 2024-11-16 13:30 | P.PNIM_ITS ---
Progress Note: A&P Assessment and Plan (1) Essential hypertension: Code(s): I10 - Essential (primary) hypertension Status: Acute (2) Hyperlipidemia: Qualifiers: Hyperlipidemia type: mixed hyperlipidemia Qualified Code(s): E78.2 - Mixed hyperlipidemia Code(s): E78.5 - Hyperlipidemia, unspecified Status: Acute (3) Diabetes type 2, controlled: Qualifiers: Diabetes mellitus shelter insulin use: without intermediate school teacher use Diabetes mellitus complication status: without complication Qualified Code(s): E11.9 - Type 2 diabetes mellitus without complications Code(s): E11.9 - Type 2 diabetes mellitus without complications Status: Acute (4) Pneumonia: Code(s): J18.9 - Pneumonia, unspecified organism Status: Acute (5) Acute hypoxic respiratory failure: Code(s): J96.01 - Acute respiratory failure with hypoxia Status: Acute (6) ROHAN (obstructive sleep apnea): Code(s): G47.33 - Obstructive sleep apnea (adult) (pediatric) Status: Acute (7) Sepsis: Code(s): A41.9 - Sepsis, unspecified organism Status: Acute Plan This is a 53-year-old male who presents to the ED today with worsening chest pain and shortness of breath along with cough. He was recently in the ER with similar symptoms on 11/11/2024 and was diagnosed with influenza A. Patient also continues to not feel well and will has pain with inspiration. He has been taking ibuprofen as needed for pain. In the ED was noted to be tachypneic and tachycardic. Other vitals were unremarkable. Oxygen saturation was adequate on room air. Laboratory workup revealed WBC of 10.6 hemoglobin 12.3 hyponatremic at 131. acidotic with bicarb of 12 creatinine 1.02 lactate was 1. Troponin was negative repeat influenza RSV COVID swab was negative. Lipase was normal at 207. ABG 7.32/26/68/13. Patient has been placed on oxygen supplementation via nasal cannula. CTA was performed which was negative for large central pulmonary embolism. Showed extensive left lower lobe pneumonia with partial involvement of the lingula minimal left pleural effusion segmental atelectasis in the posterior left upper lobe. Patient has been started on broad-spectrum antibiotics. Patient admitted for further treatment. Sepsis will stop ivf today Left lower lobe pneumonia MRSA nares came back negative however will continue with vancomycin IV. Continue on cefepime and azithromycin.imprvoing. will stop iv vancomycin Recent influenza A Acute hypoxic respiratory failure needing oxygen supplementation Metabolic acidosis Mild hyponatremia Type 2 diabetes Hypertension Hyperlipidemia DVTprophylaxis Lovenox Code status full code Subjective Date/time seen: 11/16/24 13:30 Interval history: feels bettter today. still has intermittent sob with exertion. no chest pain. cough has improved. Review of Systems Review of Systems: All systems reviewed & are unremarkable except as noted in HPI and below Exam Narrative: GENERAL: Well-appearing, well-nourished, and in no acute distress. HEAD: Normocephalic, atraumatic. EYES: PERRLA and EOMI. ENT: Nares clear, no rhinorrhea or epistaxis. Mucous membranes moist. NECK: Supple. CHEST: Left-sided crackles. No respiratory distress. HEART: regular rate and regular rhythm. No murmur heard. Normal peripheral pulses. ABDOMEN: Soft, nontender, nondistended, normal active bowel sounds. EXTREMITIES: Normal range of motion. No edema. SKIN: Warm, dry, no rash. NEURO: No focal deficits. Alert and oriented x3. PSYCH: Normal mood and affect. Objective Data Vital Signs Vital Signs: Vital Signs - 24 hr 11/15/24 14:00 11/15/24 16:00 11/15/24 16:00 Temperature 98 F Pulse Rate 72 93 84 Respiratory Rate 22 H Blood Pressure 149/82 H Pulse Oximetry 100 Oxygen Delivery Oxygen Flow Rate 11/15/24 18:00 11/15/24 19:47 11/15/24 20:00 Temperature Pulse Rate 88 87 87 Respiratory Rate 18 18 Blood Pressure Pulse Oximetry Oxygen Delivery Oxygen Flow Rate 11/15/24 20:00 11/15/24 20:00 11/15/24 20:21 Temperature 98.4 F Pulse Rate 93 91 Respiratory Rate 22 H Blood Pressure 161/78 H Pulse Oximetry 100 98 Oxygen Delivery Nasal Cannula Oxygen Flow Rate 2 11/15/24 21:34 11/15/24 22:00 11/16/24 00:00 Temperature Pulse Rate 87 98 Respiratory Rate 18 Blood Pressure Pulse Oximetry 100 97 Oxygen Delivery Nasal Cannula Nasal Cannula Oxygen Flow Rate 2 1 11/16/24 00:00 11/16/24 00:03 11/16/24 02:00 Temperature 98.5 F Pulse Rate 110 H 96 87 Respiratory Rate 22 H Blood Pressure 144/82 H Pulse Oximetry 97 Oxygen Delivery Oxygen Flow Rate 11/16/24 02:03 11/16/24 02:18 11/16/24 03:57 Temperature 98.3 F Pulse Rate 87 87 96 Respiratory Rate 18 18 22 H Blood Pressure 143/60 H Pulse Oximetry 96 Oxygen Delivery Oxygen Flow Rate 11/16/24 04:00 11/16/24 04:00 11/16/24 06:00 Temperature Pulse Rate 88 86 Respiratory Rate Blood Pressure Pulse Oximetry 96 Oxygen Delivery Nasal Cannula Oxygen Flow Rate 1 11/16/24 07:31 11/16/24 07:33 11/16/24 07:39 Temperature Pulse Rate 83 89 Respiratory Rate 18 18 Blood Pressure Pulse Oximetry 95 Oxygen Delivery Room Air Oxygen Flow Rate 11/16/24 08:00 11/16/24 08:00 11/16/24 08:00 Temperature 98.9 F Pulse Rate 97 93 Respiratory Rate 22 H Blood Pressure 150/83 H Pulse Oximetry 97 Oxygen Delivery Room Air Oxygen Flow Rate 11/16/24 10:00 11/16/24 11:42 11/16/24 12:00 Temperature 98.3 F Pulse Rate 94 94 94 Respiratory Rate 22 H 22 H Blood Pressure 156/79 H Pulse Oximetry 96 96 Oxygen Delivery Room Air Oxygen Flow Rate 11/16/24 12:00 Temperature Pulse Rate 117 H Respiratory Rate Blood Pressure Pulse Oximetry Oxygen Delivery Oxygen Flow Rate Intake/Output Intake/Output: Intake & Output 11/13/24 11/14/24 11/15/24 11/16/24 23:59 23:59 23:59 23:59 Intake Total 4010 2848 Output Total 500 Balance 3510 2848 Meds/Results Medications: Active Medications Generic Name Dose Route Start Last Admin Trade Name Freq PRN Reason Stop Dose Admin Acetaminophen 1,000 mg 11/15/24 09:48 Acetaminophen 500 Mg Tablet PO Q6H PRN pain Albuterol/Ipratropium 3 ml 11/15/24 08:00 11/16/24 07:30 Ipratropium 0.5 Mg/Albuterol Sulfate 2.5 Mg Ampul.Neb 3 Ml INHALATION 3 ml Q6HRT COMFORT Administration Atorvastatin Calcium 20 mg 11/16/24 09:00 11/16/24 08:34 Atorvastatin 20 Mg Tablet PO 20 mg DAILY COMFORT Administration Benzonatate 100 mg 11/15/24 09:48 Benzonatate 100 Mg Capsule PO BID PRN cough Calcium Carbonate 200 mg 11/15/24 15:03 Calcium Carbonate (Tums) 500 Mg (200 Mg Elemental) PO Q6H PRN Indigestion Dextrose 12.5 gm 11/15/24 09:48 Dextrose 50% 25 Gm/50 Ml Syringe IV PUSH PRN PRN Hypoglycemia Protocol Glucagon 1 mg 11/15/24 09:48 Glucagon For Inj 1 Mg Vial IM PRN PRN Hypoglycemia Protocol Glucose 15 gm 11/15/24 09:48 Glucose Oral Gel 15 Gm Of Glucse In 37.5 Gm Tube PO PRN PRN Hypoglycemia Protocol Guaifenesin 600 mg 11/15/24 09:55 11/16/24 08:34 Guaifenesin 12 Hr 600 Mg Tabcr PO 600 mg Q12HR COMFORT Administration Vancomycin HCl 1,500 mg in 500 mls @ 250 mls/hr 11/15/24 20:00 11/16/24 08:35 Vancomycin 1,500 Mg/Ns 500 Ml IVPB 250 mls/hr Q12H COMFORT Administration Sodium Chloride 1,000 mls @ 100 mls/hr 11/15/24 09:45 11/16/24 06:43 Normal Saline Iv IV CONT 100 mls/hr .Q10H COMFORT Administration Dextrose 1,000 mls @ 100 mls/hr 11/15/24 09:48 Dextrose 5% 1,000 Ml IVPB PRN PRN Hypoglycemia Protocol Azithromycin 500 mg in 250 mls @ 250 mls/hr 11/15/24 14:00 11/15/24 14:57 Zithromax IVPB 250 mls/hr Q24H COMFORT Administration Cefepime HCl 2 gm in 50 mls @ 100 mls/hr 11/15/24 14:00 11/16/24 06:45 Maxipime 2 Gm/Ns 50 Ml IVPB 100 mls/hr Q8H COMFORT Administration Ibuprofen 600 mg 11/15/24 09:48 Ibuprofen 600 Mg Tablet PO TID PRN pain Insulin Aspart 2 - 5 units 11/15/24 12:00 11/16/24 11:53 Insulin Aspart (*Bkc) 100 Units/Ml SUB-Q 2 units TIDWM COMFORT Administration Protocol Insulin Aspart 1 - 2 units 11/15/24 21:00 11/15/24 21:19 Insulin Aspart (*Bkc) 100 Units/Ml SUB-Q Not Given HS [facility] Protocol Lisinopril 20 mg 11/15/24 09:55 11/16/24 08:34 Lisinopril 20 Mg Tablet PO 20 mg QAM [facility] Administration Radiology Results: ITS Impressions Chest CTA 11/15/24 06:31 Impression: Extremely limited evaluation for pulmonary embolus due to timing of the contrast bolus. No definite large central pulmonary embolus. Extensive left lower lobe pneumonia with partial involvement of the lingula. Segmental atelectasis in the posterior left upper lobe. Minimal left pleural effusion. Labs Labs: Laboratory Results - last 24 hr 11/15/24 11/15/24 11/16/24 15:49 20:24 04:43 WBC 7.8 RBC 3.93 L Hgb 11.1 L Hct 35.1 L MCV 89.3 MCH 28.2 MCHC 31.6 L RDW 12.2 Plt Count 280 MPV 9.2 Immature Gran % (Auto) 5.9 H Neut % (Auto) 74.4 H Lymph % (Auto) 7.4 L [place] % (Auto) 10.8 H Eos % (Auto) 0.9 Baso % (Auto) 0.6 Lymph # (Auto) 0.58 L [place] # (Auto) 0.8 H Eos # (Auto) 0.1 Baso # (Auto) 0.1 Abs Immat Gran (auto) 0.46 H Absolute Neuts (auto) 5.8 Absolute Nucleated RBC 0.000 Nucleated RBC % 0.0 Sodium 135 L Potassium 4.4 Chloride 103 Carbon Dioxide 17 L Anion Gap 15 H BUN 18 Creatinine 0.84 Estim Creat Clear Calc 126 Estimated GFR > 60 Glucose 147 H POC Capillary Glucose 170 H 169 H Calcium 8.3 L Magnesium 2.4 H Total Bilirubin 0.7 AST 25 ALT 19 Alkaline Phosphatase 77 Total Protein 6.0 L Albumin 3.2 L 11/16/24 11/16/24 07:29 11:11 WBC RBC Hgb Hct MCV MCH MCHC RDW Plt Count MPV Immature Gran % (Auto) Neut % (Auto) Lymph % (Auto) [place] % (Auto) Eos % (Auto) Baso % (Auto) Lymph # (Auto) [place] # (Auto) Eos # (Auto) Baso # (Auto) Abs Immat Gran (auto) Absolute Neuts (auto) Absolute Nucleated RBC Nucleated RBC % Sodium Potassium Chloride Carbon Dioxide Anion Gap BUN Creatinine Estim Creat Clear Calc Estimated GFR Glucose POC Capillary Glucose 133 H 207 H Calcium Magnesium Total Bilirubin AST ALT Alkaline Phosphatase Total Protein Albumin
[2024-11-16] MEDS: AZITHROMYCIN 500 MG/NS 250 ML 500 MG/250 ML BAG 250 MG IVPB (14:38)
[2024-11-16 16:29] LABS: Glucose Point of Care 188 mg/dl (65-105)
[2024-11-16 20:02] LABS: Glucose Point of Care 220 mg/dl (65-105)
--- NOTE | 2024-11-16 23:15 | PC.NURSE ---
Patient being transferred to [facility] via bed in stable condition. All belongings to be sent with the patient and his questions have been addressed. Report called to Digna [place].
--- NOTE | 2024-11-16 23:40 | ADMGEN ---
Addendum entered by Digna Hernandez RN 11/17/24 02:34: IMU TRANSFER Original Note: This patient, Nathan Espana ., was admitted to 2 Medical Room 249-01. Patient/family oriented to hospital policies and general routines including ID bracelet, bed and alarms, visiting hours, pain management, procedures, bathroom and other care routines, personal items, smoking policy, room service/diet, and visiting hours. Information on how to activate the Rapid Response Team has been discussed. Patient/Family are encouraged to report perceived risks to care and to ask questions if they do not understand what they are told or what they should do.
[2024-11-17] MEDS: IPRATROPIUM 0.5 MG/ALBUTEROL SULFATE 2.5 MG AMPUL.NEB 3 ML INHALATION ×2 (01:58→08:12)
[2024-11-17 02:00] VITALS: PULSE 90; RESP 16
[2024-11-17 02:09] VITALS: PULSE 87; RESP 16
[2024-11-17 04:43] VITALS: BP 150/82; PULSE 86; RESP 18; TEMP 36.4; O2SAT 98
[2024-11-17 06:00] LABS: Basophils Absolute Auto 0.1 K/mm3 (0.0-0.1); Basophils Percent Auto 0.8 % (0.2-1.2); Eosinophils Absolute Auto 0.1 K/mm3 (0-0.3); Eosinophils Percent Auto 1.2 % (0-4.4); Hematocrit 34.5 % (42.0-52.0); Hemoglobin 11.1 g/dL (14.0-18.0); Immature Granulocyte Absolute 0.48 K/mm3 (0.00-0.031); Immature Granulocyte Percent A 7.3 % (0-0.5); Lymphocytes Percent Auto 12.1 % (18.3-44.2); Mean Corpuscular HGB Conc 32.2 g/dl (32-36); Mean Corpuscular Hemoglobin 28.1 pg (26-34); Mean Corpuscular Volume 87.3 fl (80-100); Mean Platelet Volume 9.2 fl (7.4-10.4); Monocytes Absolute Auto 0.6 K/mm3 (0.1-0.6); Monocytes Percent Auto 9.4 % (2.6-8.5); Neutrophils Absolute Auto 4.6 K/mm3 (1.3-6.7); Neutrophils Percent Auto 69.2 % (45.5-73.1); Platelet Count Result 300 k/mm3 (150-375); Red Blood Count 3.95 M/mm3 (4.6-6.20); Red Cell Distribution Width 12.1 % (11.5-14.5); White Blood Count 6.6 K/mm3 (4.5-10.0)
[2024-11-17 06:10] LABS: Alanine Aminotransferase 26 U/L (6-50); Albumin Level 3.4 g/dL (3.5-5.1); Alkaline Phosphatase 84 U/L (38-126); Anion Gap 8 mmol/L (4-12); Aspartate Amino Transferase 27 U/L (17-59); Bilirubin,Total 0.4 mg/dL (0.2-1.3); Blood Urea Nitrogen 15 mg/dL (9-20); Calcium 8.4 mg/dL (8.4-10.2); Carbon Dioxide 24 mmol/L (22-30); Chloride 102 mmol/L (98-107); Estimated CRCL calculation 150 ml/min; Estimated Glomerular Filt Rate > 60; Glucose 220 mg/dL (65-110); Magnesium 2.5 mg/dL (1.6-2.3); Potassium 3.5 mmol/L (3.4-5.0); Sodium 134 mmol/L (137-145)
[2024-11-17] MEDS: CEFEPIME 2 GM/NS 50 ML 2 GM/50 ML BAG IVPB (06:33)
[2024-11-17 08:12] VITALS: PULSE 87; RESP 18; O2SAT 98
[2024-11-17 08:23] VITALS: PULSE 90; RESP 18
[2024-11-17 08:25] VITALS: BP 155/80; PULSE 87; RESP 18; TEMP 36.3; O2SAT 97
[2024-11-17] MEDS: lisinopriL 20 MG TABLET PO (08:25)
[2024-11-17] MEDS: ATORVASTATIN 20 MG TABLET PO (08:25)
[2024-11-17] MEDS: ACETAMINOPHEN 500 MG TABLET 1000 MG PO (08:25)
[2024-11-17] MEDS: guaiFENesin 12 HR 600 MG TABCR PO (08:25)
[2024-11-17 10:10] LABS: Glucose Point of Care 268 mg/dl (65-105)
[2024-11-17] MEDS: INSULIN ASPART (*BKC) 100 UNITS/ML SUB-Q (10:14)
[2024-11-17 11:58] LABS: Glucose Point of Care 177 mg/dl (65-105)
--- NOTE | 2024-11-17 12:29 | PM.DS ---
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 Diabetes mellitus complication status: without complication Qualified Code(s): E11.9 - Type 2 diabetes mellitus without complications Code(s): E11.9 - Type 2 diabetes mellitus without complications Status: Acute (4) Pneumonia: Code(s): J18.9 - Pneumonia, unspecified organism Status: Acute (5) Acute hypoxic respiratory failure: Code(s): J96.01 - Acute respiratory failure with hypoxia Status: Acute (6) ROHAN (obstructive sleep apnea): Code(s): G47.33 - Obstructive sleep apnea (adult) (pediatric) Status: Acute (7) Sepsis: Code(s): A41.9 - Sepsis, unspecified organism Status: Acute DS: Summary Hospital Course Hospital Course: This is a 53-year-old male who presents to the ED today with worsening chest pain and shortness of breath along with cough. He was recently in the ER with similar symptoms on 11/11/2024 and was diagnosed with influenza A. Patient also continues to not feel well and will has pain with inspiration. He has been taking ibuprofen as needed for pain. In the ED was noted to be tachypneic and tachycardic. Other vitals were unremarkable. Oxygen saturation was adequate on room air. Laboratory workup revealed WBC of 10.6 hemoglobin 12.3 hyponatremic at 131. acidotic with bicarb of 12 creatinine 1.02 lactate was 1. Troponin was negative repeat influenza RSV COVID swab was negative. Lipase was normal at 207. ABG 7.32/26/68/13. Patient has been placed on oxygen supplementation via nasal cannula. CTA was performed which was negative for large central pulmonary embolism. Showed extensive left lower lobe pneumonia with partial involvement of the lingula minimal left pleural effusion segmental atelectasis in the posterior left upper lobe. Patient has been started on broad-spectrum antibiotics. Patient admitted for further treatment. Sepsis improved Left lower lobe pneumonia MRSA nares came back negative however will continue with vancomycin IV. Continue on cefepime and azithromycin.imprvoing. Start IV vancomycin switched to oral Levaquin at discharge Recent influenza A Acute hypoxic respiratory failure needing oxygen supplementation resolved by the time of discharge Metabolic acidosis resolved Mild hyponatremia resolved Type 2 diabetes Hypertension Hyperlipidemia DVTprophylaxis Lovenox Code status full code Time Spent with Patient Time attestation: Total time spent providing and/or coordinating discharge services: 35 minutes Exam Narrative: GENERAL: Well-appearing, well-nourished, and in no acute distress. HEAD: Normocephalic, atraumatic. EYES: PERRLA and EOMI. ENT: Nares clear, no rhinorrhea or epistaxis. Mucous membranes moist. NECK: Supple. CHEST: Left-sided crackles. No respiratory distress. HEART: regular rate and regular rhythm. No murmur heard. Normal peripheral pulses. ABDOMEN: Soft, nontender, nondistended, normal active bowel sounds. EXTREMITIES: Normal range of motion. No edema. SKIN: Warm, dry, no rash. NEURO: No focal deficits. Alert and oriented x3. PSYCH: Normal mood and affect. DS: Data Data Completed and Pending Labs on day of discharge: Labs from last 24 hours 11/17/24 11/17/24 11/17/24 11:55 10:06 05:31 WBC 6.6 RBC 3.95 L Hgb 11.1 L Hct 34.5 L MCV 87.3 MCH 28.1 MCHC 32.2 RDW 12.1 Plt Count 300 MPV 9.2 Immature Gran % (Auto) 7.3 H Neut % (Auto) 69.2 Lymph % (Auto) 12.1 L [place] % (Auto) 9.4 H Eos % (Auto) 1.2 Baso % (Auto) 0.8 Lymph # (Auto) 0.80 L [place] # (Auto) 0.6 Eos # (Auto) 0.1 Baso # (Auto) 0.1 Abs Immat Gran (auto) 0.48 H Absolute Neuts (auto) 4.6 Absolute Nucleated RBC 0.000 Nucleated RBC % 0.0 Sodium 134 L Potassium 3.5 Chloride 102 Carbon Dioxide 24 Anion Gap 8 BUN 15 Creatinine 0.70 Estim Creat Clear Calc 150 Estimated GFR > 60 Glucose 220 H POC Capillary Glucose 177 H 268 H Calcium 8.4 Magnesium 2.5 H Total Bilirubin 0.4 AST 27 ALT 26 Alkaline Phosphatase 84 Total Protein 7.0 Albumin 3.4 L 11/16/24 11/16/24 19:44 16:14 WBC RBC Hgb Hct MCV MCH MCHC RDW Plt Count MPV Immature Gran % (Auto) Neut % (Auto) Lymph % (Auto) [place] % (Auto) Eos % (Auto) Baso % (Auto) Lymph # (Auto) [place] # (Auto) Eos # (Auto) Baso # (Auto) Abs Immat Gran (auto) Absolute Neuts (auto) Absolute Nucleated RBC Nucleated RBC % Sodium Potassium Chloride Carbon Dioxide Anion Gap BUN Creatinine Estim Creat Clear Calc Estimated GFR Glucose POC Capillary Glucose 220 H 188 H Calcium Magnesium Total Bilirubin AST ALT Alkaline Phosphatase Total Protein Albumin Preliminary micro results at discharge 11/15/24 06:23 Blood Culture - Preliminary Blood 11/15/24 06:23 Blood Culture - Preliminary Blood Imaging Radiologist's impression: ITS Impressions Chest CTA 11/15/24 06:31 Impression: Extremely limited evaluation for pulmonary embolus due to timing of the contrast bolus. No definite large central pulmonary embolus. Extensive left lower lobe pneumonia with partial involvement of the lingula. Segmental atelectasis in the posterior left upper lobe. Minimal left pleural effusion. Discharge Plan Discharge Attending physician on discharge: Peter Browning Discharging Clinician: Peter Browning Anticipated Discharge Date/Time: 11/17/24 12:31 Patient Disposition: Home, Self-Care Activity: as tolerated Diet: heart healthy and diabetic Patient Instructions: Antibiotic Form Patient Language: [place] Stand Alone Forms: General Discharge Information Follow-up/Referrals: Kyle Manuel MD [Primary Care Provider] - 1 Week Discharge Medications: New guaifenesin [Mucus Relief ER] 600 mg Tablet Extended Release 12hr 600 mg PO Q12HR Qty: 30 0RF albuterol sulfate [Ventolin HFA] 90 mcg/actuation HFA aerosol inhaler 2 puff inhalation QID PRN (Reason: shortness of breath or wheezing) Qty: 8.5 0RF levofloxacin 750 mg tablet 750 mg PO DAILY Qty: 7 0RF Continued Trulicity 3 mg/0.5 mL pen injector 3 mg subcut WEEKLY Qty: 6 1RF acetaminophen 500 mg capsule 1,000 mg PO Q6H PRN (Reason: pain) Qty: 20 0RF benzonatate 100 mg capsule 100 mg PO BID PRN (Reason: cough) Qty: 20 0RF ibuprofen 600 mg tablet 600 mg PO TID PRN (Reason: pain) Qty: 20 0RF (DME) FreeStyle Re[place]do 2 Sensor Kit See Rx Instructions .Route Qty: 6 3RF Rx Instructions: QID benazepril 20 mg tablet 20 mg PO DAILY Qty: 90 3RF atorvastatin [Lipitor] 20 mg tablet 20 mg PO DAILY Qty: 90 3RF Date of admission: 11/15/24 18:30 Primary Care Provider: Kyle Manuel Admitting Provider: Vamshi Stevens Attending physician on admission: Vamshi Stevens Condition: Stable
== END 2024-11-17 13:00 | disposition home or self-care (01) | DRG 193 ==
LOC: ANHED 06:41 → ANH3MEDSUR 07:39 → ANHIMU 09:22 → ANH2MED 11-17 12:31 → ANHIMU 11-19 15:50
PROVIDERS: Admitting Provider Internal Medicine; Emergency Provider Emergency Medicine; PCP Family Medicine; Visit Provider Internal Medicine
DX: J18.9 Pneumonia, unspecified organism (principal); J96.01 Acute respiratory failure with hypoxia; E87.1 Hypo-osmolality and hyponatremia; E87.20 Acidosis, unspecified; I10 Essential (primary) hypertension; E11.9 Type 2 diabetes mellitus without complications; E78.5 Hyperlipidemia, unspecified; G47.33 Obstructive sleep apnea (adult) (pediatric); Z20.822 Contact with and (suspected) exposure to COVID-19; Z87.891 Personal history of nicotine dependence
CPT/HCPCS: 36415; 36600; 71275; 80048; 80053; 81001; 82375; 82805; 82948; 83050; 83605; 83690; 83735; 83880; 84145; 84484; 85018; 85025; 85610; 85730; 87040; 87637; 87641; 94640; 96361; 96365; 96366; 96367; 96375; 99285; A9270; G0378; J0456; J0692; J0696; J1815; J2270; J3370; J7030; Q9967